=== PATIENT | female | born 1960 | race Caucasian/White ===

== ENCOUNTER → 2016-12-31 | Outpatient (CLI) | payer OTHER ==
[~2016-12-31] MED LIST: CALC-545 PO; CHOL2000 PO
[2016-12-31 13:54] LABS: ASPARTATE AMINO TRANSFERASE 23 U/L (15-37); BLOOD UREA NITROGEN 8 mg/dL (7-18)
[2016-12-31 14:24] LABS: HIV 1&2 ANTIBODY SCREEN Nonreactive (Nonreactive); HIV-1 p24 ANTIGEN Nonreactive (Nonreactive)
[2017-01-01 12:48] LABS: HEMATOCRIT 48.8 % (34.6-47.8); HEMOGLOBIN 16.9 g/dL (11.7-16.4); WHITE BLOOD COUNT 7.2 x10^3/uL (3.4-10)
[2017-01-01 12:49] LABS: LARGE PLATELETS 1+
== END | disposition home or self-care (01) ==
LOC: STAR 12:28
PROVIDERS: ATTEND Orthopaedic Surgery Orthopaedic Surgery of the Spine
DX: Z01.818 Encounter for other preprocedural examination (principal); M48.56XA Collapsed vertebra, not elsewhere classified, lumbar region, initial encounter for fracture
CPT/HCPCS: 36415; 71020; 80053; 80074; 81003; 85025; 85610; 85651; 85730; 86703; 87899; G0435

== ENCOUNTER 2017-01-13 10:47 | Day surgery (SDC) | payer OTHER ==
[2017-01-02 13:02] VITALS: BP 124/86
[~2017-01-13] VITALS: Ht 162.6 cm; Wt 38.0 kg
[~2017-01-13 10:47] MED LIST changes: +BUPIVACAINE/PF 0.5% ONE; +LIDOCAINE/PF 1%, 30ML ONE
[2017-01-13] MEDS ORDERED: IBUP-1222 PO (11:26)
[2017-01-13] MEDS ORDERED: LACTATED RINGERS 1,000 ML IV SCH (11:31)
[2017-01-13] MEDS ORDERED: FENTANYL PF 250 MCG/5ML ONE (11:53)
[2017-01-13] MEDS ORDERED: MIDAZOLAM 1 MG/ML, 2ML ONE (11:53)
[2017-01-13] MEDS ORDERED: ONDANSETRON 2MG/ML, 2ML ONE (12:00)
[2017-01-13] MEDS ORDERED: CEFAZOLIN 1,000 MG ONE (12:00)
[2017-01-13] MEDS ORDERED: GLYCOPYRROLATE 0.2MG/1ML, 5ML ONE (12:00)
[2017-01-13] MEDS ORDERED: ROCURONIUM 10 MG/ML,10ML ONE (12:00)
[2017-01-13] MEDS ORDERED: PROPOFOL 10 MG/ML, 20ML ONE (12:00)
[2017-01-13] MEDS ORDERED: DEXAMETHASONE 4 MG/ML, 1ML ONE (12:00)
[2017-01-13] MEDS ORDERED: LIDOCAINE 1%, 2ML SQ PRN (12:00)
[2017-01-13] MEDS ORDERED: SUCCINYLCHOLINE 20 MG/ML, 10ML ONE (12:00)
[2017-01-13] MEDS ORDERED: LIDOCAINE 4%, 4 ML SYR/CANN TP ONE (12:00)
[2017-01-13] MEDS ORDERED: NEOSTIGMINE 1 MG/ML, 10ML ONE (12:00)
[2017-01-13] MEDS ORDERED: PHENYLEPHRINE 10 MG/ML ONE (13:59)
[2017-01-13] MEDS ORDERED: EPHEDRINE 50 MG/ML, 1ML ONE (13:59)
[2017-01-13] MEDS ORDERED: BUPIVACAINE/PF-EPI 0.5% 1:200K IM ONE (14:21)
[2017-01-13] MEDS ORDERED: LIDOCAINE 1%-EPI 1:100K, 30ML IM ONE (14:22)
[2017-01-13] MEDS ORDERED: OXYcodone 5 MG/5 ML ORAL.SOL UDC PO PRN (14:30)
[2017-01-13] MEDS ORDERED: HYDROmorphone 1 MG/ML, 1ML IV PRN (14:30)
[2017-01-13] MEDS ORDERED: ONDANSETRON 2MG/ML, 2ML IVPush PRN (14:30)
[2017-01-13] MEDS ORDERED: ACETAMINOPHEN 325 MG TABLET PO PRN (14:30)
[2017-01-13] MEDS ORDERED: FENTANYL PF 100 MCG/2ML IV PRN (14:30)
== END 2017-01-13 16:25 ==
LOC: OUT 10:47
PROVIDERS: ATTEND Orthopaedic Surgery Orthopaedic Surgery of the Spine
DX: M80.08XA Age-related osteoporosis with current pathological fracture, vertebra(e), initial encounter for fracture (principal); K29.60 Other gastritis without bleeding; F17.210 Nicotine dependence, cigarettes, uncomplicated; Z90.710 Acquired absence of both cervix and uterus; Z98.890 Other specified postprocedural states; Z98.51 Tubal ligation status; Z72.89 Other problems related to lifestyle; Z87.39 Personal history of other diseases of the musculoskeletal system and connective tissue
CPT/HCPCS: 22514; 72100; 88307; 88311; C1713; J0330; J0690; J1100; J2250; J2370; J2405; J2704; J2710; J3010; J3490; J7120